=== PATIENT | male | born 1975 | race Caucasian/White ===

== ENCOUNTER → 2018-03-16 | Outpatient (CLI) | payer OTHER | LOC: FCPNEURO 21:30 | PROVIDERS: ATTEND Student in an Organized Health Care Education/Training Program | DX: G47.33 Obstructive sleep apnea (adult) (pediatric) (principal) ==

== ENCOUNTER → 2018-04-04 | Outpatient (CLI) | payer OTHER | LOC: BMCIMAGING 09:46 | PROVIDERS: ATTEND Podiatrist Foot & Ankle Surgery | DX: M89.8X7 Other specified disorders of bone, ankle and foot (principal); M19.072 Primary osteoarthritis, left ankle and foot ==

== ENCOUNTER → 2018-04-08 | Outpatient (CLI) | payer OTHER | LOC: BMCIMAGING 09:23 | PROVIDERS: ATTEND Physician Assistant | DX: M25.762 Osteophyte, left knee (principal); M25.462 Effusion, left knee ==

== ENCOUNTER → 2018-04-13 | Outpatient (CLI) | payer OTHER | LOC: BMCIMAGING 14:12 | PROVIDERS: ATTEND Physician Assistant | DX: M17.11 Unilateral primary osteoarthritis, right knee (principal); G89.29 Other chronic pain ==

== ENCOUNTER → 2018-05-11 | Outpatient (CLI) | payer OTHER, MEDICAID | LOC: FIMAGING 12:58 | PROVIDERS: ATTEND Physician Assistant | DX: M25.462 Effusion, left knee (principal); M23.92 Unspecified internal derangement of left knee ==